=== PATIENT | female | born 1950 | race Caucasian/White ===

== ENCOUNTER → 2016-09-13 | Outpatient (CLI) | payer OTHER ==
[2016-09-13 14:34] LABS: ALBUMIN SERUM 4.6 g/dL (3.5-5.0); BILIRUBIN,TOTAL 0.3 mg/dL (0.2-2.0); CALCIUM SERUM 9.9 mg/dL (8.4-10.2); GLOM FILT RATE Estimated 59.5 mL/min (>60); POTASSIUM 4.4 mmol/L (3.5-5.1); PROTEIN TOTAL SERUM 7.5 g/dL (6.0-8.3)
== END | disposition home or self-care (01) ==
LOC: CLAB 13:20
PROVIDERS: Family Medicine
DX: E78.00 Pure hypercholesterolemia, unspecified (principal); I10 Essential (primary) hypertension
CPT/HCPCS: 36415; 80053; 80061; 84443

== ENCOUNTER → 2017-01-19 | Outpatient (CLI) | payer OTHER ==
--- NOTE | ~2017-01-19 | BD1 ---
[facility] A Service of [facility] RADIOLOGY TEXT RESULTS PATIENT: KEILA RAMON LOCATION: [facility] : 54 UNIT #: [id number] AGE: [address]: Nicci Ramos MD SEX: F ORDER DR: [id number] [id number] [facility]. [place], [place] [address] [id number] O MR#: [id number] Acc #: [id number] NAME: KEILA RAMON : 1950 SEX: F STUDY DATE/TIME: 01/19/2017 11:40 UNIT: [facility] ROOM: STUDY DESCRIPTION: BD Dexa Bone Dens 1+ Site Attending Physician: Nicci Ramos Referring Physician: Nicci Ramos Ordering Physician: Nicci Ramos Primary Care Physician: Nicci Ramos MEDICAL IMAGING REPORT This report is preliminary unless electronic signature is present EXAM DXA scan. HISTORY Postmenopausal screening for osteoporosis. COMPARISON DXA scan, 09/11/2008 and 03/26/2014. FINDINGS Bone density assessed utilizing Hologic bone densitometer. Total bone dense in the lumbar spine was calculated at 1.048 g/cm2 with a T score of 0. Total bone density in the left femoral neck was calculated at 0.660 g/cm2 with a T-score of -1.7. When compared to the patient's study from the baseline, there has been an 8% improvement in lumbar spine bone density and about a 2% improvement in left proximal femoral density. There has been approximately 5% improvement in bone density in the lumbar spine since the 2013 study. IMPRESSION Bone density within the left femoral neck is greater than 1 standard deviation below the mean and is compatible with the World Health Organization criteria for osteopenia. Overall, there has been a statistically significant improvement in bone density in the lumbar spine relative to the 2008 and 2013 studies, but no significant change in the left femur. Dictated by... Russell Vazquez M.D. THIS IS AN ELECTRONICALLY VERIFIED REPORT Russell Vazquez M.D. at 01/20/2017 2:32 PM [facility] A Service of [facility] RADIOLOGY TEXT RESULTS PATIENT: EKILA RAMON LOCATION: [facility] : 54 UNIT #: [id number] AGE: [address]: Nicci Ramos MD SEX: F ORDER DR: Lupis TD: 01/20/2017 05:25 JOB #: [id number] MEDICAL IMAGING REPORT Page 1 of 1 COPY
--- NOTE | ~2017-01-19 | MY29 ---
[facility] A Service of [facility] RADIOLOGY TEXT RESULTS PATIENT: KEILA RAMON LOCATION: [facility] ACC #: [id number] : 54 UNIT #: [id number] AGE: [address]: Nicci Ramos MD SEX: F ORDER DR: [id number] [facility] [address]. [place], [place] [address] [id number] O MR#: [id number] Acc #: [id number] NAME: KEILA RAMON : 1950 SEX: F STUDY DATE/TIME: 01/19/2017 11:14 UNIT: [facility] ROOM: STUDY DESCRIPTION: MY SANDRO SCREENING W/ CAD BILAT Ordering Physician: Nicci Ramos MEDICAL IMAGING REPORT This report is preliminary unless electronic signature is present EXAM Digital screening mammogram with CAD INDICATIONS Routine screening. TECHNIQUE Bilateral CC and MLO views obtained on a digital mammography unit. FDA-approved CAD device utilized. COMPARISON STUDIES 03/26/2014. FINDINGS Scattered fibroglandular density. No dominant mass or suspicious calcification. IMPRESSION Negative screening mammogram. Screen interval in 1 year is suggested. BIRADS: 1 Negative. Patients over the age of 40 are entered into a reminder system with target due date for the next mammogram. A result letter will also be sent to the patient. Dictated by... Triston Catherine M.D. THIS IS AN ELECTRONICALLY VERIFIED REPORT Triston Catherine M.D. at 01/20/2017 7:01 AM EED/pcl [facility] A Service of [facility] RADIOLOGY TEXT RESULTS PATIENT: KEILA RAMON LOCATION: [facility] #: [id number] : 54 UNIT #: [id number] AGE: [address]: Nicci Ramos MD SEX: F ORDER DR: TD: 01/19/2017 18:07 JOB #: [id number] MEDICAL IMAGING REPORT Page 1 of 1 COPY
== END | disposition home or self-care (01) ==
LOC: CWCC 11:05
DX: Z12.31 Encounter for screening mammogram for malignant neoplasm of breast (principal)
CPT/HCPCS: 77080; G0202